=== PATIENT | female | born 1990 | race American Indian/Alaskan Native ===

== ENCOUNTER 2017-08-27 23:03 | Emergency (ER) | payer SELFPAY ==
[2017-08-27 23:59] VITALS: BP 97/58
[2017-08-28 00:50] LABS: Bilirubin,Urine NEG (Negative); Blood,Urine LG (Negative); Color,Urine Yellow (Yellow); Mucus,Urine 3+ /HPF; Urobilinogen,Urine < 2.0 mg/dL (<2.0)
[2017-08-28 00:57] LABS: RBC,Urine > 182.0 /HPF (0.0-6.0)
[2017-08-28 01:23] LABS: Basophils # (Auto) 0.1 K/mm3 (0.0-0.1); Basophils % (Auto) 0.4 % (0.0-1.8); Eosinophils # (Auto) 0.1 K/mm3 (0.0-0.4); Eosinophils % (Auto) 0.8 % (0.0-4.3); Hematocrit 36.8 % (30.3-42.9); Hemoglobin 12.6 gm/dl (10.1-14.3); Lymphocytes # (Auto) 1.7 K/mm3 (1.2-5.4); Lymphocytes % (Auto) 10.6 % (13.4-35.0); Mean Corpuscular HGB Conc 34 % (30-34); Mean Corpuscular Hemoglobin 30 pg (28-32); Mean Corpuscular Volume 89 fl (79-97); Monocytes # (Auto) 0.9 K/mm3 (0.0-0.8); Monocytes % (Auto) 5.6 % (0.0-7.3); Platelet Count 205 K/mm3 (140-440); Red Blood Count 4.14 M/mm3 (3.65-5.03); Red Cell Distribution Width 12.6 % (13.2-15.2)
== END 2017-08-28 13:00 | disposition left against medical advice (07) ==
LOC: ED 23:03
DX: N93.9 Abnormal uterine and vaginal bleeding, unspecified (principal); Z53.21 Procedure and treatment not carried out due to patient leaving prior to being seen by health care provider
CPT/HCPCS: 36415; 81001; 84702; 84703; 85025; 86850; 86900; 86901

== ENCOUNTER 2018-10-15 02:00 | Inpatient (IN) | payer MEDICAID, OTHER ==
[2018-10-15] MEDS ORDERED: PITOCin/NS 20 UNIT/1000ML DRIP 20,000 MILLIUNITS/1,000 ML BAG IV ONE (02:11)
--- NOTE | 2018-10-15 02:32 | History and Physical Report ---
History of Present Illness Date of examination: 10/15/18 Date of admission: 10/15/18 02:06 Chief complaint: Labor History of present illness: Pt is a 28yo HF EDC 10/18/18; EGA 39 4/7 weeks presents to L&D complaining of RUC's q 2-4 mins and dilated 10cm with BBOW. She denies ROM or bleeding. She received care at [facility] since 8 weeks,and course has been unremarkable. records are available and GBS is Negative. Past History Past Medical History: no pertinent history Past Surgical History: no surgical history Family/Genetic History: none Social history: no significant social history, - Obstetrical History Expected Date of Delivery: 10/18/18 Actual Gestation: 39 Week(s) 4 Day(s) : 1 Medications and Allergies Allergies Allergy/AdvReac Type Severity Reaction Status Date / Time No Known Allergies Allergy Verified 08/27/17 23:52 Home Medications Medication Instructions Recorded Confirmed Last Taken Type Vit-Fe Fumar-FA [ 1 tab PO QDAY 11/08/14 11/08/14 11/07/14 History Vitamin] Ibuprofen [Motrin 600 MG tab] 600 mg PO Q6HR #30 tablet 11/10/14 Unknown Rx oxyCODONE /ACETAMINOPHEN [Percocet 2 tab PO Q4H PRN #30 tablet 11/10/14 Unknown Rx 5/325 mg] Review of Systems All systems: negative - Physical Exam Breasts: Positive: deferred Cardiovascular: Regular rate Lungs: Positive: Clear to auscultation Abdomen: Positive: normal appearance Genitourinary (Female): Positive: normal external genitalia Vagina: Positive: normal moisture Uterus: Positive: enlarged Extremities: Positive: normal - Obstetrical FHR: category 1 Uterine Contraction Monitor Mode: External Cervical Dilatation: 10 Cervical Effacement Percentage: 100 station: +2 Uterine Contraction Pattern: Regular Uterine Tone Measurement Phase: Contraction Uterine Contraction Intensity: Strong/Firm Results Result Diagrams: 10/15/18 02:00 All other labs normal. Assessment and Plan - Patient Problems (1) 39 weeks gestation of Onset Date: 10/15/18 Current Visit: Yes Status: Acute Plan to address problem: A: IUP @ 39 4/7 weeks in labor P: Admit to L&D for expectant vaginal delivery (2) Active labor at term Onset Date: 10/15/18 Current Visit: Yes Status: Acute
[2018-10-15] MEDS ORDERED: BRETHINE SUB-Q PRN (02:37)
[2018-10-15] MEDS ORDERED: XYLOCAINE 2% INFILTRATI ONE (02:37)
[2018-10-15] MEDS ORDERED: MINERAL OIL PO PRN (02:37)
[2018-10-15] MEDS ORDERED: BRETHINE IVP PRN (02:37)
--- NOTE | 2018-10-15 02:37 | Procedure Note ---
OB Delivery Note - Delivery Date of Delivery: 10/15/18 Surgeon: ML MCFARLANE Estimated blood loss: 100cc - Vaginal Delivery presentation: vertex Delivery position: OA Intrapartum events: precipitous labor- <3hr Delivery induction: none Delivery augmentation: rupture of membranes Delivery monitor: external FHT, external uterine Route of delivery: Delivery placenta: spontaneous Delivery cord: 3 umbilical vessels Episiotomy: none Delivery laceration: none Anesthesia: none Delivery comments: delivered OA and placed on Mom's chest for [id number] bonding and delayed cord clamping, cut by Dad - Infant A at 1 minute: 8 at 5 minutes: 9 Gender: Female (3150gms)
[2018-10-15] MEDS ORDERED: PHENERGAN PO PRN (02:40)
[2018-10-15] MEDS ORDERED: PHENERGAN PR PRN (02:40)
[2018-10-15] MEDS ORDERED: DULCOLAX PR PRN (02:40)
[2018-10-15] MEDS ORDERED: BENADRYL PO PRN (02:40)
[2018-10-15] MEDS ORDERED: MILK OF MAGNESIA PO PRN (02:40)
[2018-10-15] MEDS ORDERED: TUCKS PAD TP PRN (02:40)
[2018-10-15] MEDS ORDERED: LANSINOH TP PRN (02:40)
[2018-10-15] MEDS ORDERED: NORCO 5/325 PO PRN (02:40)
[2018-10-15] MEDS ORDERED: ZOFRAN IV PRN (02:40)
[2018-10-15] MEDS ORDERED: TYLENOL PO PRN (02:40)
[2018-10-15] MEDS ORDERED: LACTATED RINGERS 1,000 ML IV SCH (03:00)
[2018-10-15] MEDS ORDERED: SODIUM CHLORIDE FLUSH SYRINGE 10 ML IV NR (03:00)
[2018-10-15] MEDS ORDERED: PITOCin/NS 20 UNIT/1000ML DRIP 20 UNITS/1,000 ML BAG IV SCH ×2 (03:00)
[2018-10-15] MEDS ORDERED: PITOCin/NS 30 UNIT/500ML 30 UNITS/500 ML BAG IV SCH (03:00)
[2018-10-15] MEDS: IBUPROFEN PO SCH ×3 (03:10→13:00)
[2018-10-15 03:51] LABS: Hematocrit 38.9 % (30.3-42.9); Hemoglobin 13.5 gm/dl (10.1-14.3); Mean Corpuscular HGB Conc 35 % (30-34); Mean Corpuscular Volume 92 fl (79-97); Platelet Count 160 K/mm3 (140-440); Red Blood Count 4.24 M/mm3 (3.65-5.03); Red Cell Distribution Width 12.8 % (13.2-15.2)
[2018-10-15] MEDS ORDERED: COLACE PO SCH (10:00)
[2018-10-15] MEDS ORDERED: PRENATAL VITAMIN PO SCH (10:00)
[2018-10-15] MEDS: FEOSOL PO SCH ×2 (13:00→21:48)
[2018-10-15 15:24] LABS: Hematocrit 35.1 % (30.3-42.9); Hemoglobin 12.2 gm/dl (10.1-14.3)
[2018-10-16] MEDS: IBUPROFEN PO SCH ×2 (00:47→06:13)
[2018-10-16] MEDS ORDERED: BOOSTRIX IM ONE (06:00)
[2018-10-16] MEDS ORDERED: M-M-R II VACCINE SUB-Q ONE (06:00)
--- NOTE | 2018-10-16 10:04 | Progress Note ---
Assessment and Plan A: PP Day #1 Stable P: Follow Routine Orders D/C home today per patient request RTO in 6 weeks Subjective - Subjective Date of service: 10/16/18 Patient reports: appetite normal, voiding normally, pain well controlled, fl atus, bowel movement, ambulating normally [place]: doing well, bottle feeding (and ) Objective - Vital Signs Latest vital signs: Vital Signs Temp Pulse Resp BP Pulse Ox 10/16/18 07:34 97.9 F 78 16 103/67 96 10/16/18 07:13 18 10/16/18 06:13 18 10/16/18 01:47 18 10/16/18 00:58 98.0 F 73 18 109/64 97 10/16/18 00:47 18 10/15/18 13:32 99.2 F 69 18 112/62 96 Intake and Output 10/15/18 10/16/18 10/16/18 22:59 06:59 14:59 Intake Total 240 240 Balance 240 240 Intake: Oral 240 Intake, Free Water 240 Other: Total, Intake Amount 240 # Voids Void 1 1 - Exam Breasts: Present: normal Cardiovascular: Present: Regular rate Lungs: Present: Clear to auscultation, Normal air movement Abdomen: Present: normal appearance, soft, normal bowel sounds Uterus: Present: normal, firm, fundal height below umbilicus Extremities: Present: normal
--- NOTE | 2018-10-16 10:05 | Discharge Summary ---
Providers - Providers Date of Admission: 10/15/18 02:06 Date of discharge: 10/16/18 Attending physician: DERREK ALVAREZ MD Primary care physician: DERREK ALVAREZ MD Hospitalization Reason for admission: active labor Delivery: Episiotomy: none Laceration: none Other procedures: none complications: none Discharge diagnosis: IUP at term delivered [place] baby: female Condition at discharge: Good Disposition: DC-01 TO HOME OR SELFCARE Plan - Provider Discharge Summary Activity: routine, no sex for 6 weeks, no heavy lifting 4 weeks, no strenuous exercise Diet: routine Instructions: routine Additional instructions: [] Smoking cessation referral if applicable(refer to patient education folder for contact #) [] Refer to [facility]'s [facility] Booklet Call your doctor immediately for: * Fever > 100.5 * Heavy vaginal bleeding ( >1 pad per hour) * Severe persistent headache * Shortness of breath * Reddened, hot, painful area to leg or breast * Drainage or odor from incision. * Keep incision clean and dry at all times and follow doctor's instructions regarding bathing/showering - Follow up plan Follow up: DERREK ALVAREZ MD [Primary Care Provider] - 6 Weeks
[2018-10-16 17:18] VITALS: BP 110/68
== END 2018-10-16 16:30 | disposition home or self-care (01) | DRG 807 ==
LOC: TRG 02:00 → LD 02:06 → OB 05:29
PROVIDERS: ADMIT Obstetrics & Gynecology; ATTEND Obstetrics & Gynecology
PROC: 10E0XZZ Delivery of Products of Conception, External Approach (ICD-10-PCS; principal; 2018-10-15)
PROC: 3E0234Z Introduction of Serum, Toxoid and Vaccine into Muscle, Percutaneous Approach (ICD-10-PCS; 2018-10-16)
DX: O62.3 Precipitate labor (principal); Z37.0 Single live birth; Z3A.39 39 weeks gestation of pregnancy; Z23 Encounter for immunization
CPT/HCPCS: 36415; 85014; 85018; 85027; 86592; 86850; 86900; 86901; 90471; 90715; G0378; A6250; J2590

== ENCOUNTER 2021-11-08 19:48 | Inpatient (IN) | payer MEDICAID, OTHER ==
[2021-11-08] MEDS ORDERED: NalbUPHINE 10 MG/1 ML INJ IV PRN (20:15)
[2021-11-08] MEDS ORDERED: MINERAL OIL 30 ML ORAL LIQD PO PRN (20:15)
[2021-11-08] MEDS ORDERED: miSOPROStol 200 MCG TAB PR PRN (20:15)
[2021-11-08] MEDS ORDERED: LOPERAMIDE 2 MG CAP PO PRN (20:15)
[2021-11-08] MEDS ORDERED: CARBOPROST TROMETHAMINE 250 MCG/1 ML INJ IM PRN (20:15)
[2021-11-08] MEDS ORDERED: LIDOCAINE (2%) 20 MG/1 ML VIAL 20 ML MDV INFILTRATI ONE (20:15)
[2021-11-08] MEDS ORDERED: TERBUTALINE 1 MG/1 ML INJ SUB-Q PRN (20:15)
[2021-11-08] MEDS ORDERED: BUTORPHANOL 2 MG/1 ML INJ IV PRN ×2 (20:15)
[2021-11-08] MEDS ORDERED: PENICILLIN G POTASSIUM 5 MIL.UNITS in SODIUM CHLORIDE 0.9% 50 ML IV ONE (20:15)
[2021-11-08] MEDS ORDERED: fentaNYL 100 MCG/2 ML INJ IV PRN (20:15)
[2021-11-08] MEDS ORDERED: METHYLERGONOVINE MALEATE 0.2 MG/ML VIAL IM PRN (20:15)
[2021-11-08] MEDS ORDERED: LACTATED RINGERS 1,000 ML IV SCH (20:15)
[2021-11-08] MEDS ORDERED: ePHEDrine SULFATE 50 MG/1 ML INJ IV PRN (20:15)
[2021-11-08] MEDS ORDERED: OXYTOCIN 10 UNIT/1 ML INJ IM PRN (20:15)
[2021-11-08] MEDS ORDERED: ACETAMINOPHEN 325 MG TAB PO PRN ×2 (20:15→21:16)
[2021-11-08 20:29] LABS: Hematocrit 37.4 % (30.3-42.9); Mean Corpuscular HGB Conc 35 % (30-34); Mean Corpuscular Volume 89 fl (79-97); Platelet Count 177 K/mm3 (140-440); Red Blood Count 4.19 M/mm3 (3.65-5.03); Red Cell Distribution Width 13.9 % (13.2-15.2)
[2021-11-08] MEDS ORDERED: OXYTOCIN DRIP 30 UNITS/500 ML BAG IV SCH ×2 (21:00)
--- NOTE | 2021-11-08 21:12 | History and Physical Report ---
History of Present Illness Date of examination: 11/08/21 Date of admission: 11/08/2021 Chief complaint: Contractions History of present illness: 31-year-old at 38-1/7 weeks gestation presents to OB triage reporting regular painful uterine contractions occurring every 3 to 5 minutes apart. There is bloody show. There is no leaking fluid. There is good movement. She was noted be 4 cm dilated in the office today. In OB triage, the cervical exam was noted to be 6 cm dilated. The patient is admitted to labor and delivery in active labor. Past History Past Medical History: no pertinent history Past Surgical History: no surgical history Family/Genetic History: none Social history: no significant social history - Obstetrical History Expected Date of Delivery: 11/21/21 Actual Gestation: 38 Week(s) 1 Day(s) : 4 Para: 2 Hx # Term Pregnancies: 2 Number of Pregnancies: 0 Spontaneous Abortions: 1 Induced : 0 Number of Living Children: 2 Medications and Allergies Allergies Allergy/AdvReac Type Severity Reaction Status Date / Time No Known Allergies Allergy Verified 08/27/17 23:52 Home Medications Medication Instructions Recorded Confirmed Last Taken Type Vit-Fe Fumar-FA [ 1 tab PO QDAY 11/08/14 10/15/18 11/07/14 History Vitamin] Ibuprofen [Motrin 600 MG tab] 600 mg PO Q6HR #30 tablet 11/10/14 10/15/18 Unknown Rx oxyCODONE /ACETAMINOPHEN [Percocet 2 tab PO Q4H PRN #30 tablet 11/10/14 10/15/18 Unknown Rx 5/325 mg] Active Meds: Active Medications Acetaminophen (Acetaminophen 325 Mg Tab) 650 mg PO Q4H PRN PRN Reason: Pain, Mild (1-3) Butorphanol Tartrate (Butorphanol 2 Mg/1 Ml Inj) 1 mg IV Q2H PRN PRN Reason: Pain, Moderate(4-6) LABOR PAIN Butorphanol Tartrate (Butorphanol 2 Mg/1 Ml Inj) 2 mg IV Q2H PRN PRN Reason: Pain , Severe (7-10) Carboprost Tromethamine (Carboprost Tromethamine 250 Mcg/1 Ml Inj) 250 mcg IM ONCE PRN PRN Reason: Uterine Bleeding Ephedrine Sulfate (Ephedrine Sulfate 50 Mg/1 Ml Inj) 10 mg IV Q2M PRN PRN Reason: Hypotension Fentanyl (Fentanyl 100 Mcg/2 Ml Inj) 100 mcg IV Q2H PRN PRN Reason: Pain,Severe (7-10) LABOR PAIN Oxytocin/Sodium Chloride (Pitocin/Ns 30 Unit/500ml) 30 units in 500 mls @ 2 mls/hr IV TITR ELLIOTT; Protocol Lactated Ringer's (Lactated Ringers) 1,000 mls @ 125 mls/hr IV DIRECT ELLIOTT Oxytocin/Sodium Chloride (Pitocin/Ns 30 Unit/500ml) 30 units in 500 mls @ 40 mls/hr IV TITR ELLIOTT; Protocol Loperamide HCl (Loperamide 2 Mg Cap) 2 mg PO ONCE PRN PRN Reason: give with Hemabate Methylergonovine Maleate (Methylergonovine Maleate 0.2 Mg/Ml Vial) 0.2 mg IM ONCE PRN PRN Reason: Uterine Bleeding Mineral Oil (Mineral Oil 30 Ml Oral Liqd) 30 ml PO QHS PRN PRN Reason: Constipation Nalbuphine HCl (Nalbuphine 10 Mg/1 Ml Inj) 10 mg IV Q2H PRN PRN Reason: Pain, Moderate (4-6) Oxytocin (Oxytocin 10 Unit/1 Ml Inj) 10 unit IM ONCE PRN PRN Reason: Uterine Bleeding Terbutaline Sulfate (Terbutaline 1 Mg/1 Ml Inj) 0.25 mg SUB-Q ONCE PRN PRN Reason: Hyperstimulation/Hypertonicity Review of Systems All systems: negative - Vital Signs Vital signs: Vital Signs Temp Resp Pulse Ox 98.2 F 14 100 11/08/21 19:57 11/08/21 19:57 11/08/21 19:57 Temp Pulse Resp BP Pulse Ox 98.2 F 105 H 14 116/67 97 11/08/21 19:57 11/08/21 20:21 11/08/21 19:57 11/08/21 20:06 11/08/21 20:35 - Physical Exam Breasts: Positive: normal Cardiovascular: Regular rate Lungs: Positive: Normal air movement Abdomen: Positive: normal appearance Genitourinary (Female): Positive: normal external genitalia, normal perenium Vulva: both: normal Vagina: Positive: normal moisture Uterus: Positive: enlarged Adnexa: both: normal Anus/Rectum: Positive: normal perianal skin Extremities: Positive: normal Deep Tendon Reflex Grade: Normal +2 - Obstetrical FHR: category 1 Uterine Contraction Monitor Mode: External Cervical Dilatation: 6 Cervical Effacement Percentage: 90 station: -2 Uterine Contraction Frequency (min): 3 Uterine Contraction Pattern: Regular Uterine Tone Measurement Phase: Contraction Uterine Contraction Intensity: Moderate Results Result Diagrams: 11/08/21 20:20 Abnormal lab results 11/08/21 Range/Units 20:20 WBC 14.2 H (4.5-11.0) K/mm3 MCHC 35 H (30-34) % All other labs normal. Ultrasound: pending Assessment and Plan - Patient Problems (1) 38 weeks gestation of Current Visit: Yes Status: Acute Plan to address problem: care is up-to-date at [facility]. The patient is GBS positive. (2) GBS (group B Streptococcus carrier), +RV culture, currently Current Visit: Yes Status: Acute Plan to address problem: Start penicillin per 2010 CDC MMWR guidelines for intrapartum GBS prophylaxis. (3) Active labor at term Onset Date: 10/15/18 Current Visit: No Status: Acute Plan to address problem: The patient is 6 cm dilated. Admit to labor and delivery for expectant management of active labor at term. Expect precipitous vaginal delivery.
--- NOTE | 2021-11-08 21:12 | Procedure Note ---
OB Delivery Note - Delivery Date of Delivery: 11/08/21 Surgeon: ALEX FISHMAN Estimated blood loss: 500cc - Vaginal Delivery presentation: vertex Delivery position: OA Intrapartum events: precipitous labor- <3hr Delivery induction: none Delivery monitor: external FHT, external uterine Route of delivery: Delivery placenta: spontaneous Delivery cord: nuchal cord (Nuchal cord x1), 3 umbilical vessels Episiotomy: none Delivery laceration: none Anesthesia: none - A at 1 minute: 8 at 5 minutes: 9 Gender: Female (3060 g)
[2021-11-08] MEDS ORDERED: WITCH HAZEL/ GLYCERIN PAD TP PRN (21:16)
[2021-11-08] MEDS ORDERED: HYDROcodone/ACETAMINOPHEN 5-325 MG TAB PO PRN (21:16)
[2021-11-08] MEDS ORDERED: MAGNESIUM HYDROXIDE (MOM) ORAL LIQD UDC PO PRN (21:16)
[2021-11-08] MEDS ORDERED: LANOLIN/ZINC/DIMETHICONE (LANSINOH) 7 GM TP PRN (21:16)
[2021-11-08] MEDS ORDERED: BENZOCAINE/MENTHOL 20/0.5% TOP SPRAY 56 GM TP PRN (21:16)
[2021-11-08] MEDS: IBUPROFEN 800 MG TAB PO SCH (23:00)
[2021-11-09] MEDS: IBUPROFEN 800 MG TAB PO SCH ×2 (04:34→18:12)
[2021-11-09 08:23] LABS: Hematocrit 34.1 % (30.3-42.9); Hemoglobin 11.6 gm/dl (10.1-14.3); Mean Corpuscular HGB Conc 34 % (30-34); Mean Corpuscular Volume 90 fl (79-97); Platelet Count 152 K/mm3 (140-440); Red Blood Count 3.79 M/mm3 (3.65-5.03); Red Cell Distribution Width 13.8 % (13.2-15.2)
[2021-11-09] MEDS ORDERED: PRENATAL VIT27-FE FUMARATE-FOLIC ACID VIT TAB PO SCH (10:00)
[2021-11-09] MEDS: DOCUSATE SODIUM 100 MG CAP PO SCH ×2 (10:41→22:00)
--- NOTE | 2021-11-09 14:08 | Progress Note ---
Assessment and Plan A: PP Day #1 Stable P: Follow Routine Orders D/C Home today RTO in 6 Weeks Subjective - Subjective Date of service: 11/09/21 Patient reports: appetite normal, voiding normally, pain well controlled, flatus, bowel movement, ambulating normally : doing well, bottle feeding (and ) Objective - Vital Signs Latest vital signs: Vital Signs Temp Pulse Resp BP BP Pulse Ox Pulse Ox 11/09/21 07:45 98 11/09/21 07:42 98.0 F 68 18 107/53 97 11/09/21 04:21 98.0 F 85 20 111/68 98 11/09/21 01:30 98.5 F 72 16 104/51 98 98 11/08/21 21:00 98.3 F 11/08/21 20:35 97 11/08/21 20:21 105 H 99 11/08/21 20:20 100 H 92 11/08/21 20:16 104 H 94 11/08/21 20:15 93 H 94 11/08/21 20:11 101 H 98 11/08/21 20:06 95 H 116/67 97 11/08/21 19:57 98.2 F 14 100 Intake and Output 11/08/21 11/09/21 11/09/21 22:59 06:59 14:59 Intake Total 480 Output Total 1100 Balance -620 Intake: Oral 240 Intake, Free Water 240 Output: Urine 1100 Void 1100 Other: Total, Intake Amount 120 Total, Output Amount 500 # Voids Void 1 Weight 75.296 kg Estimated Blood Loss 500 - Exam Breasts: Present: normal Cardiovascular: Present: Regular rate Lungs: Present: Clear to auscultation, Normal air movement Abdomen: Present: normal appearance, soft, normal bowel sounds Uterus: Present: normal, firm, fundal height below umbilicus Extremities: Present: normal - Labs Labs: Abnormal lab results 11/08/21 11/09/21 Range/Units 20:20 08:07 WBC 14.2 H 13.7 H (4.5-11.0) K/mm3 MCHC 35 H (30-34) %
--- NOTE | 2021-11-09 14:09 | Discharge Summary ---
Providers - Providers Date of Admission: 11/08/21 21:16 Date of discharge: 11/09/21 Attending physician: MAHAMED DUNN Primary care physician: MAHAMED DUNN Hospitalization Reason for admission: active labor Delivery: Episiotomy: none Laceration: none Other procedures: none complications: none Discharge diagnosis: IUP at term delivered [place] baby: female Condition at discharge: Good Disposition: 01 HOME / SELF CARE / HOMELESS Plan - Provider Discharge Summary Additional instructions: [] Smoking cessation referral if applicable(refer to patient education folder for contact #) [] Refer to [facility]'s [facility] Booklet Call your doctor immediately for: * Fever > 100.5 * Heavy vaginal bleeding ( >1 pad per hour) * Severe persistent headache * Shortness of breath * Reddened, hot, painful area to leg or breast * Drainage or odor from incision. * Keep incision clean and dry at all times and follow doctor's instructions regarding bathing/showering - Follow up plan Follow up: MAHAMED DUNN MD [Primary Care Provider] - 7 Days
[2021-11-10] MEDS: IBUPROFEN 800 MG TAB PO SCH ×2 (04:00→09:07)
[2021-11-10] MEDS: DOCUSATE SODIUM 100 MG CAP PO SCH ×2 (06:27→09:07)
[2021-11-10 15:01] VITALS: BP 106/59
== END 2021-11-10 15:30 | disposition home or self-care (01) | DRG 807 ==
LOC: TRG 19:48 → APU 19:50 → TRG 21:16 → LD 21:16 → OB 11-09 01:30
PROVIDERS: ADMIT Obstetrics & Gynecology; ATTEND Obstetrics & Gynecology
PROC: 10E0XZZ Delivery of Products of Conception, External Approach (ICD-10-PCS; principal; 2021-11-08)
DX: O69.81X0 Labor and delivery complicated by cord around neck, without compression, not applicable or unspecified (principal); Z37.0 Single live birth; O62.3 Precipitate labor; O99.824 Streptococcus B carrier state complicating childbirth; Z3A.38 38 weeks gestation of pregnancy; Z20.822 Contact with and (suspected) exposure to COVID-19
CPT/HCPCS: 36415; 59025; 85027; 86592; 86850; 86900; 86901; 96360; 96365; G0378; U0003